=== PATIENT | female | born 1930 | race Caucasian/White ===

== ENCOUNTER → 2016-09-21 | Outpatient (CLI) | payer OTHER, MEDICARE ==
[~2016-09-21] MED LIST: ACYC5OIN3 EXT; AMOX500C3 PO; ASPI81TA28 PO; CALC200T PO; ESTR1CRE PV; INDA1TAB3 PO; LUTE1TAB2 PO; METO50TA7 PO; POLYSOL4 OPB
--- NOTE | 2016-09-21 15:35 | MAMMOGRAPHY REPORT ---
BILATERAL DIGITAL SCREENING MAMMOGRAM WITH CAD: 09/21/2016 TECHNIQUE: Current study was also evaluated with a Computer Aided Detection (CAD) system. Bilatera l CC and MLO views were obtained. COMPARISON: Comparison is made to exams dated: 09/19/2015 mammogram, 09/15/2014 mammogram, 07/14/2013 ma mmogram, 07/08/2012 mammogram, 07/02/2011 mammogram, and 06/27/2009 mammogram - [facility] enter. BREAST COMPOSITION: The tissue of both breasts is heterogeneously dense, which may obscure small ma sses. FINDINGS: No suspicious masses, calcifications, or areas of architectural distortion are noted in e ither breast. There has been no significant interval change compared to prior exams. Nodular asymme try in the left superior posterior breast on the MLO view is stable dating back to at least the 2010 exam. IMPRESSION: ACR BI-RADS CATEGORY 2: BENIGN There is no mammographic evidence of malignancy. A 1 year screening mammogram is recommended. The p atient will receive written notification of the results. Approximately 10% of breast cancers are not detected with mammography. A negative mammographic repor t should not delay biopsy if a clinically suggestive mass is present. Miladys Dean M.D. /:09/21/2016 15:09:30 Line Person: Adrienne MEYER)(Jodi), [facility] letter sent: Normal 1/2 BI-RADS Code: ACR BI-RADS Category 2: Benign
== END | disposition home or self-care (01) ==
LOC: C.MAMM 14:50
PROVIDERS: ATTEND Obstetrics & Gynecology
DX: Z12.31 Encounter for screening mammogram for malignant neoplasm of breast (principal)

== ENCOUNTER → 2016-09-24 | Outpatient (CLI) | payer OTHER, MEDICARE ==
[2016-09-24 17:54] LABS: URINE APPEARANCE CLEAR (CLEAR); URINE BILIRUBIN NEG (NEG); URINE COLOR YELLOW; URINE NITRITE NEG (NEG); URINE SPECIFIC GRAVITY 1.009 (1.000-1.030); UROBILINOGEN NEG (NEG)
[2016-09-24 17:56] LABS: MANUAL MICROSCOPIC REQUIRED? NO; REVIEW REQ? NO
== END | disposition home or self-care (01) ==
LOC: C.LAB1850 16:14
PROVIDERS: ATTEND Internal Medicine
DX: R32 Unspecified urinary incontinence (principal)

== ENCOUNTER → 2016-10-02 | Outpatient (CLI) | payer OTHER, MEDICARE ==
[2016-10-02 17:51] LABS: URINE APPEARANCE CLEAR (CLEAR); URINE BILIRUBIN NEG (NEG); URINE COLOR YELLOW; URINE EPITHELIAL CELL AUTO 0-5 /lpf (0-5); URINE NITRITE NEG (NEG); URINE PH 5.5 (4.5-7.5); URINE SPECIFIC GRAVITY 1.008 (1.000-1.030); UROBILINOGEN NEG (NEG)
[2016-10-02 18:00] LABS: MANUAL MICROSCOPIC REQUIRED? NO; REVIEW REQ? NO
== END | disposition home or self-care (01) ==
LOC: C.LAB1850 17:04
PROVIDERS: ATTEND Internal Medicine
DX: R32 Unspecified urinary incontinence (principal)

== ENCOUNTER → 2016-11-27 | Outpatient (CLI) | payer OTHER, MEDICARE ==
--- NOTE | 2016-11-27 11:58 | DIAGNOSTIC IMAGING REPORT ---
MRI OF THE LUMBAR SPINE WITHOUT CONTRAST CLINICAL HISTORY: Low back pain with radiculopathy. COMPARISON STUDY: Lumbar spine radiographs December 08, 2015. TECHNIQUE: Utilizing a 1.5 Yvonne magnet and dedicated coil, multiplanar, multiecho imaging of the lumbar spine was performed without IV contrast. FINDINGS: For purposes of numbering on this exam, the L5-S1 disc space is assigned to axial image 27 of 30. There is 4 mm of anterolisthesis of L3 on L4, 5 mm of anterolisthesis of L4 and L5 and 6 mm anterolisthesis of L5 on S1. There is no suspicious marrow replacement. The conus terminates at the L1 level. Paravertebral soft tissues are unremarkable. A 1.9 cm T1 and T2 hyperintense T12 vertebral body lesion is consistent with a hemangioma. L1-2: The central canal and neural foramen are patent. L2-3: There is disc bulge. The central canal and neural foramen are patent. L3-4: There is anterolisthesis with disc bulge, ligamentous hypertrophy and facet arthrosis that result in moderate narrowing of the central canal and lateral recesses. L4-5: There is anterolisthesis with uncovering of the disc, ligament hypertrophy and facet arthrosis that result in moderate to severe narrowing of the central canal and lateral recesses with mild narrowing of both neural foramen. L5-S1: There is anterolisthesis with disc bulge. There is a small central disc protrusion. There is mild narrowing of the central canal and lateral recesses as well as both neural foramen. IMPRESSION: 1. Grade I anterolisthesis of L3 on L4, L4 and L5 and L5 on S1 due to facet arthrosis. 2. Moderate to severe central canal stenosis at L4-L5, as described above. Moderate central canal stenosis at L3-L4 and mild central canal stenosis at L5-S1. 3. Mild to moderate multilevel neural foraminal stenosis. Electronically signed by: Andrea Cano M.D. 11/27/2016 11:57 AM Dictated Date/Time: 11/27/2016 11:49 AM
== END | disposition home or self-care (01) ==
LOC: C.MRI 10:23
PROVIDERS: ATTEND Internal Medicine
DX: M54.30 Sciatica, unspecified side (principal); M54.9 Dorsalgia, unspecified; M54.17 Radiculopathy, lumbosacral region; M43.16 Spondylolisthesis, lumbar region; M48.06 Spinal stenosis, lumbar region

== ENCOUNTER → 2017-01-23 | Outpatient (CLI) | payer OTHER, MEDICARE | END | disposition home or self-care (01) | LOC: C.LABSPEC 17:06 | PROVIDERS: ATTEND Obstetrics & Gynecology | DX: Z12.11 Encounter for screening for malignant neoplasm of colon (principal) ==

== ENCOUNTER → 2017-04-01 | Outpatient (CLI) | payer OTHER, MEDICARE ==
[2017-04-01 16:51] LABS: BASO % 0.5 %; BASO ABS # 0.03 K/uL (0-0.2); COMPLETE YES; EOS % 2.3 %; HEMATOCRIT 43.7 % (37-47); IG% 0.2 %; LYMPH ABS # 1.79 K/uL (1.2-3.4); MEAN CELL VOLUME 95.2 fL (80-100); MEAN CORPUSCULAR HGB CONC 33.6 g/dl (32-36); MEAN PLATELET VOLUME 11.5 fL (7.4-10.4); MONO % 8.5 %; NEUT % 57.5 %; PLATELET COUNT 164 K/uL (130-400); RED BLOOD COUNT 4.59 M/uL (4.2-5.4); WHITE BLOOD COUNT 5.77 K/uL (4.8-10.8)
[2017-04-01 17:20] LABS: BLOOD UREA NITROGEN 20 mg/dl (7-18); BUN/CREATININE RATIO 21.6 (10-20); CALCIUM 9.7 mg/dl (8.5-10.1); CARBON DIOXIDE 31 mmol/L (21-32); CHLORIDE 102 mmol/L (98-107); CREATININE 0.93 mg/dl (0.60-1.20); GLUCOSE 67 mg/dl (70-99); POTASSIUM 3.9 mmol/L (3.5-5.1); SODIUM 139 mmol/L (136-145)
[2017-04-01 18:06] LABS: URINE APPEARANCE CLEAR (CLEAR); URINE BILIRUBIN NEG (NEG); URINE COLOR YELLOW; URINE NITRITE NEG (NEG); URINE PH 5.5 (4.5-7.5); URINE SPECIFIC GRAVITY 1.013 (1.000-1.030); UROBILINOGEN NEG (NEG)
[2017-04-01 18:18] LABS: MANUAL MICROSCOPIC REQUIRED? NO; REVIEW REQ? YES
== END | disposition home or self-care (01) ==
LOC: C.LAB1850 15:42
PROVIDERS: ATTEND Internal Medicine
DX: I10 Essential (primary) hypertension (principal)

== ENCOUNTER → 2017-04-30 | Outpatient (CLI) | payer OTHER, MEDICARE ==
--- NOTE | 2017-04-30 15:16 | DIAGNOSTIC IMAGING REPORT ---
RIGHT SHOULDER 3 VIEWS HISTORY: Right shoulder pain. COMPARISON: None. FINDINGS: There is no fracture or dislocation. Soft tissues are unremarkable. Mild AC joint arthrosis. The right clavicle is intact. The bones are osteopenic. IMPRESSION: No fracture or dislocation within the right shoulder. Electronically signed by: Ramsey Dietrich M.D. 04/30/2017 3:15 PM Dictated Date/Time: 04/30/2017 3:14 PM
== END | disposition home or self-care (01) ==
LOC: C.RAD1850 15:02
PROVIDERS: ATTEND Internal Medicine
DX: M25.511 Pain in right shoulder (principal)

== ENCOUNTER → 2017-09-24 | Outpatient (CLI) | payer OTHER, MEDICARE ==
[~2017-09-24] MED LIST changes: -METO50TA7 PO; +METO50TA8 PO
--- NOTE | 2017-09-26 07:57 | MAMMOGRAPHY REPORT ---
BILATERAL DIGITAL SCREENING MAMMOGRAM TOMOSYNTHESIS WITH CAD: 09/24/2017 CLINICAL HISTORY: Routine screening. Patient has no complaints. TECHNIQUE: Breast tomosynthesis in addition to standard 2D mammography was performed. Current study was also evaluated with a Computer Aided Detection (CAD) system. COMPARISON: Comparison is made to exams dated: 09/21/2016 mammogram, 09/19/2015 mammogram, 09/15/2014 mamm ogram, 07/14/2013 mammogram, 07/08/2012 mammogram, and 07/02/2011 mammogram - [facility] er. BREAST COMPOSITION: The tissue of both breasts is heterogeneously dense, which may obscure small mas ses. FINDINGS: The parenchymal pattern is unchanged. No developing mass, architectural distortion or clus ter of suspicious microcalcifications is seen in either breast. IMPRESSION: ACR BI-RADS CATEGORY 2: BENIGN There is no mammographic evidence of malignancy. A 1 year screening mammogram is recommended. The pa tient will receive written notification of the results. Approximately 10% of breast cancers are not detected with mammography. A negative mammographic report should not delay biopsy if a clinically suggestive mass is present. Bibi Roberts M.D. ay/:09/24/2017 16:32:14 Ur Coordinator: Dr. Bibi Roberts, [facility] letter sent: Normal 1/2 BI-RADS Code: ACR BI-RADS Category 2: Benign
== END | disposition home or self-care (01) ==
LOC: C.MAMM 14:19
PROVIDERS: ATTEND Obstetrics & Gynecology
DX: Z12.31 Encounter for screening mammogram for malignant neoplasm of breast (principal)